=== PATIENT | male | born 1995 | race Caucasian/White ===

== ENCOUNTER 2019-02-19 18:47 | Observation (INO) | payer OTHER ==
[~2019-02-19] VITALS: Ht 177.8 cm; Wt 74.8 kg
[2019-02-19 18:56] VITALS: BP 118/79
[2019-02-19] MEDS ORDERED: FISH OIL 1,001000 M2 PO (18:58)
[2019-02-19] MEDS ORDERED: THERAPEUTIC M PO (18:58)
[2019-02-19 19:49] LABS: HEMATOCRIT 42.5 % (42.0-52.0); HEMOGLOBIN 14.7 gm/dL (14.0-18.0); MCH 28.3 pg (26.0-34.0); MCHC 34.6 g/dL (28.0-37.0); MCV 81.7 fL (80.0-100.0); MPV 7.6 fl. (7.2-11.1); NUCLEATED RBCS 0 /100WBC; PLATELET COUNT* 226 thou/uL (150-400); WBC 13.4 thou/uL (4.0-11.0)
[2019-02-19 20:04] LABS: ALBUMIN 4.1 g/dL (3.4-5.0); CALCIUM 9.2 mg/dL (8.5-10.1); CREATININE 0.7 mg/dL (0.6-1.3); POTASSIUM 3.3 mmol/L (3.5-5.1); TOTAL BILIRUBIN 2.6 mg/dL (<0.1-1.0); TOTAL PROTEIN 7.4 g/dL (6.4-8.2)
[2019-02-19 20:13] LABS: ABSOLUTE LYMPHOCYTES 1.2 thou/uL (0.8-5.3); ABSOLUTE MONOCYTES 0.8 thou/uL (0.0-1.2); ABSOLUTE NEUTROPHILS 11.4 thou/uL (1.6-8.1); PLATELET ESTIMATE ADEQUATE
[2019-02-19 21:11] LABS: URINE BILIRUBIN NEGATIVE (Negative); URINE BLOOD NEGATIVE (Negative); URINE CLARITY CLEAR; URINE COLOR YELLOW; URINE GLUCOSE-RANDOM NEGATIVE (Negative); URINE KETONES NEGATIVE (Negative); URINE LEUKOCYTES NEGATIVE (Negative); URINE NITRITE NEGATIVE (Negative); URINE PROTEIN NEGATIVE (Negative); URINE UROBILINOGEN 0.2 E.U./dl (0.2-1.0)
[2019-02-19 23:52] VITALS: BP 126/71
--- NOTE | 2019-02-20 | NUR ---
PT UPDATED ON POC. PT RESTING. VSS. WARM BLANKET PROVIDED.
[2019-02-20 00:03] VITALS: BP 126/71
[2019-02-20 00:17] VITALS: BP 126/71
[2019-02-20 01:09] VITALS: BP 126/71
[2019-02-20 04:50] VITALS: BP 109/68
[2019-02-20 04:59] LABS: HEMATOCRIT 41.9 % (42.0-52.0); HEMOGLOBIN 14.2 gm/dL (14.0-18.0); MCHC 33.8 g/dL (28.0-37.0); MCV 82.7 fL (80.0-100.0); MPV 7.6 fl. (7.2-11.1); RBC 5.07 mil/uL (4.50-6.00); RDW-CV 18.1 % (10.5-14.5); WBC 10.6 thou/uL (4.0-11.0)
[2019-02-20 05:05] VITALS: BP 109/68
[2019-02-20 05:13] LABS: ALBUMIN 3.4 g/dL (3.4-5.0); CALCIUM 8.5 mg/dL (8.5-10.1); CREATININE 0.8 mg/dL (0.6-1.3); MAGNESIUM 1.8 mg/dL (1.8-2.4); PHOSPHORUS* 3.5 mg/dL (2.5-4.9); POTASSIUM 3.5 mmol/L (3.5-5.1); TOTAL BILIRUBIN 3.6 mg/dL (<0.1-1.0); TOTAL PROTEIN 6.5 g/dL (6.4-8.2)
[2019-02-20 13:18] VITALS: BP 109/68
[2019-02-20] MEDS ORDERED: OXYCODONE HCL 55 MG PO (13:28)
--- NOTE | 2019-02-21 08:44 | OP ---
[address] [address] OPERATIVE REPORT Name: ERIC CASTANEDA Room: [address] Dex#: [id number] Admission: 02/19/19 Attend Phys: Maura Miner Discharge: 02/20/19 Date of : 89 Report #: [id number] THIS REPORT FOR: //name// CC: LOUISA physician/PCP Nura Pearson DICTATED BY: Mamadou Nelson DO DATE OF SERVICE: 02/20/2019 PREOPERATIVE DIAGNOSIS: Acute appendicitis. POSTOPERATIVE DIAGNOSIS: Acute appendicitis. SURGEON: Dalila Knight DO. ANESTHESIOLOGIST: Mamadou Nelson, PGY4. OPERATION PERFORMED: Laparoscopic appendectomy. ANESTHESIA: General and local. ESTIMATED BLOOD LOSS: 10 mL. SPECIMENS: Appendix. COMPLICATIONS:. None. DISPOSITION: PACU to the floor. HISTORY OF PRESENT ILLNESS: The patient is a pleasant 23-year-old male who presented to the ER last night with some right lower quadrant abdominal pain. He stated the pain started 1 day ago and was associated with some mild nausea, but no vomiting. He also had some diarrhea associated with discomfort. He denies any prior episodes of this pain in the past. After a thorough workup, the patient did have a mildly elevated white blood cell count and also had a CT scan to confirm that he had acute appendicitis with some notable periappendiceal fat stranding and inflammation that was seen. General Surgery was consulted to see the patient in the ER, and he was thoroughly evaluated at that time. Given the patient's physical exam findings as well as the patient's history and CT scan, it was confirmed that he did most likely have acute appendicitis. We decided to suggest laparoscopic appendectomy with possibility of open procedure. A complete detailed description of the procedure was reviewed at length with the patient. All risks, benefits, complications to include but are not limited to infection, bleeding, hernias at incision sites, pain and numbness at incisions, need for open procedure, injury to nearby structures [place] [address] OPERATIVE REPORT Name: ERIC CASTANEDA [address]#: [id number] Admission: 02/19/19 Attend Phys: Maura Miner Discharge: 02/20/19 Date of : 89 Report #: [id number] bladder, DVT, abscess formation, need for further procedure and anesthesia risks as well as other common complications associated with this procedure. The patient and his family both voiced complete understanding and wished to proceed. DESCRIPTION OF PROCEDURE: After appropriate consents were obtained, the patient was taken to the operating room, laid in supine position. He had SCDs placed on bilateral lower extremities, and a safety strap was placed across her lap. The patient had his left arm tucked to the side. Then, all lines were placed by Anesthesia at this time. The patient was then sedated and intubated by Anesthesia without difficulty. His abdomen was exposed and prepped and draped in standard sterile fashion. Timeout was performed to correctly identify the patient and procedure. We elected to use the infraumbilical area for her initial incision. This area was first injected with 0.5% Marcaine to act as local anesthesia. We then used a #11 blade scalpel between two Adson's to make our incision. Any bleeding that was occurring was adequately controlled using electrocautery. It was at this time, we used S retractors to dissect down bluntly to encounter the intra-abdominal fascia. Once the fascia was encountered, it was grasped and elevated between 2 David clamps. The fascia was then incised using electrocautery. We used a hemostat to bluntly enter the intra-abdominal cavity. A finger was used to sweep the intra-abdominal cavity to ensure there were no arlen-incisional adhesions, none were present. At this time, we placed our stay sutures, which were both 0 Vicryl sutures on either side of the fascia to tag for Niurka trocar. The Niurka trocar was then introduced into the abdomen without difficulty. The patient's abdomen was insufflated to 15 mmHg at this time. Upon initial inspection, there was minimal fluid in the right lower quadrant with some notable inflammation and obvious adhesions. We then placed our left lower quadrant 5 mm port site under direct visualization. We also placed our 5 mm port site at the suprapubic region. Using blunt graspers, we were able to sweep away the right colon as well as the small intestines. The patient was placed in a head down, left side down position. The appendix was adhered to the right lower quadrant in the retrocecal position. Using blunt dissection, we were able to carefully tease the appendix away from the underlying peritoneum. There did appear to be a significant amount of inflammation present. There is no obvious abscess that was present. Once the appendix was completely freed for the lower abdominal wall, we were able to make a window between the mesoappendix and the base of the appendix. Once we had adequate window plate in place, we used a 45 mm purple load Endo-MARIAELENA stapler to transect the appendix at its base. We then used a separate 45 mm Endo-MARIAELENA stapler to transect the mesoappendix. There was a minimal amount of bleeding from the lateral aspect of our staple line which was adequately controlled using electrocautery. We suctioned away any blood that was present until this area was completely dry. We allowed the patient's abdomen to desufflate and relieve any type of pressure that was applied to the staple line, and there was no active bleeding. The patient's abdomen was then reinsufflated. We inserted our endoscopic bag and placed the appendix within the bag. We then allowed our trocars to be removed [place] [address] OPERATIVE REPORT Name: ERIC CASTANEDA Ori [address]: [address]#: [id number] Admission: 02/19/19 Attend Phys: Maura Miner Discharge: 02/20/19 Date of : 89 Report #: [id number] The patient's abdomen was desufflated, and the appendix was removed from the infraumbilical incision site. We reapproximated the fascia using 0 Vicryl sutures in a freceg-sb-bxlnp fashion. The skin was closed using Monocryl suture and 4-0 Monocryl in a running subcuticular fashion. The remaining port sites were closed using the same 4-0 Monocryl suture in an inverted interrupted fashion. The patient's abdomen was then cleaned and dried adequately, and we injected further with using 0.5% Marcaine at each incision site for local anesthesia. We placed Mastisol, Steri-Strips, gauze and a sterile Tegaderm Op-Site over each of the incision sites. The patient was allowed to awaken and was subsequently extubated in the OR without difficulty. He was transported to PACU in stable condition. All counts were correct x [address] Knight was present and scrubbed for the entire procedure. He will be allowed to further recover today and as long as he is able to meet the goals for discharge, he will likely be sent home today. The patient will have close followup in the office in about a week. <ELECTRONICALLY SIGNED> By: Dalila Knight DO 02/21/19 0844 [id number] 1515Cwallace Knight DO /nt
--- NOTE | 2019-02-21 15:05 | PATH ---
[address] [address] PATHOLOGY RPT PROCEDURE Name: TAM CASTILLO Room: [address] Dex#: [id number] Admission: 02/19/19 Date of : [birth year] Discharge: 02/20/19 Report #: [id number] Path Case #: [id number] [facility] Accession Number: [id number] . 01 Material submitted: . appendix - APPENDIX . 01 Clinical history: . Appendicitis . 02 Diagnosis: Appendix, appendectomy: - Marked acute appendicitis along with marked serositis. (IUV/db; 02/21/2019) LBQ/02/21/2019 . 02 Electronically signed: . Michell Madrigal MD, Pathologist NPI- [id number] . 01 Gross description: . Received in formalin labeled "Tam Castillo, appendix," is an appendix measuring 6.0 cm in length and ranging from 0.7 cm to 1.2 cm in diameter, with a moderate amount of attached mesoappendix measuring up to 2.0 cm in thickness. The appendix serosa is shaggy and palomares-kahn to hemorrhagic in appearance, extensively covered in adhesions/exudate. The proximal margin is closed with a linear staple line; this area is inked black. Serial sectioning reveals a pinpoint to patent lumen measuring up to 0.4 cm in diameter, displaying an extensively hemorrhagic mucosa/submucosa and partially filled with hemorrhagic amorphous material. The proximal margin and bisected distal tip are submitted in cassette A1, and additional patient accounting representative sections are submitted in cassette A2. ([facility]; 02/20/2019) XDC/XDC . 02 Pathologist provided ICD-10: K35.80 . 02 CPT . 963513 Specimen Comment: A courtesy copy of this report has been sent to Specimen Comment: [phone], . Specimen Comment: Report sent to / DR LLANES Performed at: [address] [place] [address] [id number] MD Lloyd Holland MD Phone: [phone] Performed at: 02 [place] [address] PATHOLOGY RPT PROCEDURE Name: TAM CASTILLO Room: [address] M..#: [id number] Admission: 02/19/19 Date of : 89 Discharge: 02/20/19 Report #: [id number] Path Case #: [id number] [facility] [address], [place], [place] [id number] MD Michell Madrigal MD Phone: [phone]
== END 2019-02-20 13:18 | disposition home or self-care (01) ==
LOC: M.ERS 18:47 → M.TBA-ER 22:47
PROVIDERS: Nurse Practitioner Family; Surgery; ADMIT Internal Medicine
DX: K35.30 Acute appendicitis with localized peritonitis, without perforation or gangrene (principal); D72.829 Elevated white blood cell count, unspecified; E80.6 Other disorders of bilirubin metabolism; F12.90 Cannabis use, unspecified, uncomplicated; F17.210 Nicotine dependence, cigarettes, uncomplicated